=== PATIENT | male | born 1980 | race Caucasian/White ===

== ENCOUNTER 2024-08-08 12:16 | Emergency (ER) | payer OTHER, SELFPAY ==
[2024-08-08 12:18] VITALS: BP 156/92
[2024-08-08 13:36] LABS: % Basophils 0.5 % (0-2); % Immature Granulocytes 0.3 % (0-0.5); % Lymphocytes 16.9 % (20.5-51.1); % Monocytes 6.4 % (1.7-9.3); % Neutrophils 74.9 % (42.2-75.2); Absolute Eosinophils 0.1 10^3/uL (0-0.7); Absolute Lymphocytes 1.4 10^3/uL (1.2-3.4); Absolute Monocytes 0.5 10^3/uL (0.1-0.6); Hematocrit 45.5 % (39.0-52.0); Hemoglobin 15.6 g/dL (13.0-18.0); Mean Corp Hgb Conc. 34.3 g/dL (33.0-37.0); Mean Corpuscular Hgb 31.1 pg (27.0-31.0); Mean Corpuscular Volume 90.8 fL (80.0-94.0); Mean Platelet Volume 9.8 fL (7.4-10.4); Nucleated Red Blood Cells % 0 % (-); Platelet Count 229 10^3/uL (130-400); Red Blood Cell Count 5.01 10^6/uL (4.70-6.10); Red Cell Dist. Width 12.3 % (11.5-14.5)
[2024-08-08 13:50] LABS: ALT (SGPT) 50 U/L (0-50); AST (SGOT) 40 U/L (17-59); Albumin 4.5 g/dl (3.5-5.0); Alkaline Phosphatase 57 U/L (38-126); Blood Urea Nitrogen 22 mg/dl (9-20); Calcium 9.3 mg/dl (8.4-10.2); Carbon Dioxide 29 mmol/L (22-30); Chloride 100 mmol/L (98-107); Glucose 92 mg/dl (70-99); Potassium 4.4 mmol/L (3.5-5.1); Sodium 140 mmol/L (135-145); Total Bilirubin 0.2 mg/dl (0.2-1.3); Total Protein 6.8 g/dl (6.3-8.2); eGFR > 60.00
--- NOTE | 2024-08-08 14:29 | ED.GENMED ---
History of Present Illness
General
Chief Complaint: Male Genito-Urinary Symptoms
Source: patient
Exam Limitations: none
Time Seen by Provider: 08/08/24 12:54
Nursing documentation reviewed up to this point in time: agreed with
History of Present Illness
History of Present Illness:
44 yo male with h/o neurogenic bladder, had a Urologist in [place], none here. States he noted burning with urination 5 days ago, then 'a little blood' at the end of urinating 3 days ago along with bilateral flank discomfort. Went to 3 days ago and
started on Cipro. He says the person at told him he may be in kidney failure and he is concerned the 'infection' is moving up to his kidneys.
Denies n/v/d/c/f/c. Denies abdominal pain.
Past History
Past History
ED Past Medical History: Other (neurogenic bladder, UTIs)
ED Past Surgical History: Other (hernia surgery)
Social History
Tobacco: Non-smoker
Alcohol: Occasional
Personal: Single
Living: alone
Employment: Employed ([employer])
Review of Systems
Review of Systems
Allergies reviewed?: Yes
All Other Systems: ROS reviewed and negative except as documented in HPI and ROS
Constitutional: Denies fever or chills
Respiratory: Denies trouble breathing
Cardiac: Denies chest pain
ABD/GI: Denies abdominal pain, nausea, vomiting, diarrhea or anorexia
: Reports dysuria, flank pain (bilateral) and bleeding (Noted 'a little reddish' toward the end of urination 2 days ago); Denies incontinence, difficulty voiding, urgency or discharge
Musculoskeletal: Reports no symptoms
Skin: Reports no symptoms
Neurological: Reports no symptoms
Phy Exam
Physical Exam
Physical Exam:
GENERAL: No acute distress. A&Ox3.
CONSTITUTIONAL: Afebrile.
RESPIRATORY: Regular respirations, nonlabored, lungs clear.
CARDIOVASCULAR: Regular rate and rhythm, no murmurs, no rubs.
GI: Soft, nontender, normal BS. Flanks nontender to percussion.
MUSCULOSKELETAL: Moves with ease. Well perfused.
SKIN: Warm, dry, pink
PSYCH: Normal mood and affect. Well kept, interactive and appropriate
NEUROLOGIC: Awake, alert and oriented. No focal neurological deficits
Course
Orders/Labs/Results
Orders:
Orders
08/08/24 13:21
Complete Blood Count/With Diff Urgent
Comprehensive Metabolic Panel Urgent
08/08/24 13:51
Urinalysis Reflex To Culture Urgent
Date Specimen was Collected: 08/08/24
Time Specimen was Collected: 13:27
Urine Microscopic Reflex Cult Urgent
Urine Culture Urgent
SAURABH Source: U
Specimen Description:
Date Specimen was Collected: 08/08/24
Time Specimen was Collected: 13:27
08/08/24 14:23
Bladder Scan- Treatment ONCE
Abnormal Lab Results
08/08/24 08/08/24
13:21 13:51
MCH 31.1 H pg
(27.0-31.0)
Lymphocytes % 16.9 L %
(20.5-51.1)
BUN 22 H mg/dl
(9-20)
Ur Occult Blood Reflex Trace A
(Negative)
Urine RBC 11-15 A /HPF
(0-2)
Urine Bacteria (Reflex) Moderate A
(Negative)
08/08/24 13:21
08/08/24 13:21
Vital Signs
Initial and Last Documented VS:
Initial Vital Signs
Temp Pulse Resp BP Pulse Ox
98.6 F 82 18 156/92 99
08/08/24 12:18 08/08/24 12:18 08/08/24 12:18 08/08/24 12:18 11/18/24 12:18
Last Documented Vital Signs
Temp Pulse Resp BP Pulse Ox
98.6 F 80 18 146/86 98
08/08/24 12:18 08/08/24 15:40 08/08/24 15:40 08/08/24 15:40 08/08/24 15:40
MDM/Problems Addressed
Differential Diagnosis Includes:
UTI, pyelonephritis, kidney insufficiency, urine retention
MDM/Problems Addressed:
44 yo male with h/o neurogenic bladder, had a Urologist in [place], none here. States he noted burning with urination 5 days ago, then 'a little blood' at the end of urinating 3 days ago along with bilateral flank discomfort. Went to 3 days ago and
started on Cipro. He says the person at told him he may be in kidney failure and he is concerned the 'infection' is moving up to his kidneys.
Denies n/v/d/c/f/c. Denies abdominal pain.
Afebrile, NAD
CBC normal
CMP normal
U/A 11-15 RBCs otherwise neg. Neg ketones, neg albumin
Post void bladder scan: 69
No sign of kidney disease, infection, urine retention
Pt reassured
Given Urology referral to use if needed.
*Critical Care Note
Total Time (30-74mins, 75-104mins- exclusive of procedures): Not Applicable
ED Attending Note
-
Portions of this chart may have been created with voice recognition software.� Occasional wrong word or��sound alike� substitutions may have occurred due to the inherent limitations of voice recognition software.
Discharge Plan
Departure
Patient Disposition: Home (Routine Discharge)
Date of Disposition: 08/08/24
Time of Disposition: 15:15
Patient with high blood pressure during this ER visit?: No
Condition: Good
Discharge Problem:
Low back pain, Microscopic hematuria
Instructions: Low back pain in adults, Blood in the Urine (Hematuria), Adult (DC)
Referrals:
Brady Haider Jr., MD [Active] - As needed
Activity Restrictions/Additional Instructions:
As we discussed, you have no sign of urine infection, kidney infection or problem with kidney function in your workup here today.
I have provided you with the name of a Urologist to follow up with if needed
Try Ibuprofen 600 mg every 6 hours as needed for back pain as it may be musculoskeletal back pain.
Interventions
Interventions:
*Risk Screen - Suicide Last Done: 08/08/24 12:21
*General Assessment Last Done: 08/08/24 15:40
*Neglect/Abuse Screening Last Done: 08/08/24 12:21
*Nursing Disposition Last Done: 08/08/24 15:40
ED-Male Genitourinary Assessment Last Done: 08/08/24 14:00
Discharge Date and Time
Discharge Date/Time: 08/08/24 15:42
Print Language: TUNISIAN
[2024-08-08 14:30] LABS: Urine Albumin Trace (Neg - Trace); Urine Bilirubin Negative (Negative); Urine Character Clear (Clear); Urine Color Yellow; Urine Glucose Negative (Negative); Urine Ketone Negative (Negative); Urine Leukocyte Negative (Negative); Urine Nitrite Negative (Negative); Urine Occult Blood Trace (Negative); Urine Specific Gravity 1.015 (<1.030); Urine Urobilinogen Negative (Neg - 1+)
[2024-08-08 14:46] LABS: Urine Bacteria Moderate (Negative)
[2024-08-08 15:40] VITALS: BP 146/86
== END 2024-08-08 15:42 | disposition home or self-care (01) ==
LOC: EMR 12:16
PROVIDERS: Registered Nurse; EMERGENCY PHYSICIAN Emergency Medicine; FAMILY PHYSICIAN Family Medicine
DX: M54.50 Low back pain, unspecified (principal); R31.29 Other microscopic hematuria; N31.9 Neuromuscular dysfunction of bladder, unspecified
CPT/HCPCS: 99283; 80053; 81003; 81015; 85025; 87086